=== PATIENT | male | born 1945 | race Caucasian/White ===

== ENCOUNTER 2016-09-01 09:57 | Outpatient (RCR) | payer MEDICARE, OTHER ==
[2016-09-01 10:06] LABS: PLATELET COUNT 205 10^3uL (150-450); WHITE BLOOD COUNT 5.91 10^3uL (4.0-11.0)
[2016-09-01 10:11] LABS: MEAN CORPUSCULAR HEMOGLOBIN 25.6 PG (26.0-34.0); MEAN CORPUSCULAR VOLUME 78 FL (80-100)
[2016-09-01 10:23] LABS: ANION GAP 16.6 MEQ/L (3-15); CALCULATED IONIZED CALCIUM 4.1 mg/dL (3.8-4.6); PHOSPHORUS 3.5 mg/dL (2.4-4.9); TOTAL PROTEIN 7.5 g/dL (6.4-8.5)
[2016-09-01 10:26] LABS: BAND NEUTROPHILS % 2 % (0-6); EOSINOPHILS % 8 % (0-4); LYMPHOCYTES # 1.1 #; MONOCYTES # 0.4 #; MONOCYTES % 7 % (3-11); RBC MORPH NORMAL (NORMAL); SEGMENTED NEUTROPHILS % 63 % (51-67); TOTAL CELLS COUNTED 100
[2016-09-15 10:10] LABS: BASOPHILS % (AUTO) 0 % (0-2); EOSINOPHILS # (AUTO) 0.2 10^3uL; EOSINOPHILS % (AUTO) 4 % (0-4); LYMPHOCYTES # (AUTO) 0.6 X10^3; MEAN CORPUSCULAR HGB CONC 32.9 g/dL (31.0-37.0); MEAN PLATELET VOLUME 9.9 FL (6.0-9.5); MONOCYTES # (AUTO) 0.1 X10^3; MONOCYTES % (AUTO) 1 % (3-11); NEUTROPHILS # (AUTO) 4.3 X10^3; NEUTROPHILS % (AUTO) 84 % (51-67); PLATELET COUNT 217 10^3uL (150-450); WHITE BLOOD COUNT 5.19 10^3uL (4.0-11.0)
[2016-09-15 10:20] LABS: MEAN CORPUSCULAR HEMOGLOBIN 25.1 PG (26.0-34.0); MEAN CORPUSCULAR VOLUME 77 FL (80-100)
[2016-09-22 10:30] LABS: MEAN CORPUSCULAR HGB CONC 33.1 g/dL (31.0-37.0); PLATELET COUNT 143 10^3uL (150-450); WHITE BLOOD COUNT 4.02 10^3uL (4.0-11.0)
[2016-09-22 10:32] LABS: MEAN CORPUSCULAR HEMOGLOBIN 25.2 PG (26.0-34.0); MEAN CORPUSCULAR VOLUME 76 FL (80-100)
[2016-09-22 10:49] LABS: BAND NEUTROPHILS % 0 % (0-6); EOSINOPHILS % 0 % (0-4); LYMPHOCYTES # 0.8 #; MONOCYTES # 0.1 #; MONOCYTES % 3 % (3-11); SEGMENTED NEUTROPHILS % 76 % (51-67); TOTAL CELLS COUNTED 100
[2016-09-22 10:50] LABS: ANISOCYTOSIS SLIGHT; MICROCYTOSIS SLIGHT; RBC MORPH SEE REFERENCE (NORMAL)
[2016-09-22 11:21] LABS: ALBUMIN 3.6 g/dL (3.4-5.0); ANION GAP 14.4 MEQ/L (3-15); CALCULATED IONIZED CALCIUM 4.1 mg/dL (3.8-4.6); PHOSPHORUS 3.5 mg/dL (2.4-4.9); TOTAL PROTEIN 7.1 g/dL (6.4-8.5)
[2016-09-29 11:04] LABS: MEAN PLATELET VOLUME 9.8 FL (6.0-9.5); PLATELET COUNT 233 10^3uL (150-450); WHITE BLOOD COUNT 3.64 10^3uL (4.0-11.0)
[2016-09-29 11:06] LABS: MEAN CORPUSCULAR HEMOGLOBIN 24.6 PG (26.0-34.0); MEAN CORPUSCULAR HGB CONC 31.7 g/dL (31.0-37.0); MEAN CORPUSCULAR VOLUME 78 FL (80-100)
[2016-09-29 11:08] LABS: BAND NEUTROPHILS % 0 % (0-6); EOSINOPHILS % 5 % (0-4); MONOCYTES # 0.1 #; MONOCYTES % 2 % (3-11); RBC MORPH SEE REFERENCE (NORMAL); SEGMENTED NEUTROPHILS % 66 % (51-67); TOTAL CELLS COUNTED 100
[2016-09-29 11:09] LABS: ANISOCYTOSIS SLIGHT; HYPOCHROMASIA SLIGHT; POIKILOCYTOSIS SLIGHT
[2016-10-06 09:15] LABS: MEAN CORPUSCULAR HGB CONC 32.4 g/dL (31.0-37.0); MEAN PLATELET VOLUME 9.6 FL (6.0-9.5); PLATELET COUNT 343 10^3uL (150-450); WHITE BLOOD COUNT 3.45 10^3uL (4.0-11.0)
[2016-10-06 10:27] LABS: MEAN CORPUSCULAR HEMOGLOBIN 24.6 PG (26.0-34.0); MEAN CORPUSCULAR VOLUME 76 FL (80-100); SEGMENTED NEUTROPHILS % 75 % (51-67)
[2016-10-06 10:28] LABS: ANISOCYTOSIS SLIGHT; BAND NEUTROPHILS % 2 % (0-6); EOSINOPHILS % 6 % (0-4); LYMPHOCYTES # 0.5 #; MICROCYTOSIS SLIGHT; MONOCYTES # 0.1 #; MONOCYTES % 2 % (3-11); RBC MORPH SEE REFERENCE (NORMAL); TOTAL CELLS COUNTED 100
[2016-10-06 13:02] LABS: IRON 24 ug/dL (65-175); UNBOUND IRON CONTENT 317 ug/dl (126-382)
[2016-10-13 10:41] LABS: MEAN PLATELET VOLUME 9.8 FL (6.0-9.5); PLATELET COUNT 172 10^3uL (150-450)
[2016-10-13 10:42] LABS: MEAN CORPUSCULAR HEMOGLOBIN 23.9 PG (26.0-34.0); MEAN CORPUSCULAR HGB CONC 31.7 g/dL (31.0-37.0); MEAN CORPUSCULAR VOLUME 76 FL (80-100)
[2016-10-13 10:58] LABS: BAND NEUTROPHILS % 1 % (0-6); EOSINOPHILS % 3 % (0-4); HYPOCHROMASIA SLIGHT; LYMPHOCYTES # 0.7 #; MONOCYTES # 0.5 #; MONOCYTES % 12 % (3-11); POIKILOCYTOSIS SLIGHT; RBC MORPH SEE REFERENCE (NORMAL); SEGMENTED NEUTROPHILS % 69 % (51-67); TOTAL CELLS COUNTED 100
[2016-10-13 10:59] LABS: ANISOCYTOSIS SLIGHT
[2016-10-20 10:58] LABS: MEAN PLATELET VOLUME 9.5 FL (6.0-9.5); PLATELET COUNT 165 10^3uL (150-450); WHITE BLOOD COUNT 2.93 10^3uL (4.0-11.0)
[2016-10-20 11:19] LABS: MEAN CORPUSCULAR HEMOGLOBIN 23.7 PG (26.0-34.0); MEAN CORPUSCULAR HGB CONC 31.2 g/dL (31.0-37.0); MEAN CORPUSCULAR VOLUME 76 FL (80-100)
[2016-10-20 13:19] LABS: BAND NEUTROPHILS % 0 % (0-6); EOSINOPHILS % 0 % (0-4); LYMPHOCYTES # 0.8 #; MONOCYTES # 0.3 #; MONOCYTES % 16 % (3-11); SEGMENTED NEUTROPHILS % 56 % (51-67); TOTAL CELLS COUNTED 100
[2016-10-20 13:20] LABS: ANISOCYTOSIS SLIGHT; HYPOCHROMASIA SLIGHT; POLYCHROMASIA SLIGHT; RBC MORPH SEE REFERENCE (NORMAL)
[2016-10-27 10:51] LABS: MEAN CORPUSCULAR VOLUME 80 FL (80-100); MEAN PLATELET VOLUME 9.8 FL (6.0-9.5); PLATELET COUNT 260 10^3uL (150-450); WHITE BLOOD COUNT 7.68 10^3uL (4.0-11.0)
[2016-10-27 10:58] LABS: ANISOCYTOSIS MODERATE; BAND NEUTROPHILS % 0 % (0-6); EOSINOPHILS % 0 % (0-4); HYPOCHROMASIA SLIGHT; LYMPHOCYTES # 0.6 #; MEAN CORPUSCULAR HEMOGLOBIN 25.3 PG (26.0-34.0); MEAN CORPUSCULAR HGB CONC 31.5 g/dL (31.0-37.0); MONOCYTES # 0.6 #; MONOCYTES % 8 % (3-11); RBC MORPH SEE REFERENCE (NORMAL); SEGMENTED NEUTROPHILS % 84 % (51-67); TOTAL CELLS COUNTED 100
[2016-11-03 08:36] LABS: MEAN CORPUSCULAR HGB CONC 32.7 g/dL (31.0-37.0); MEAN CORPUSCULAR VOLUME 80 FL (80-100); MEAN PLATELET VOLUME 9.8 FL (6.0-9.5); PLATELET COUNT 235 10^3uL (150-450); WHITE BLOOD COUNT 2.83 10^3uL (4.0-11.0)
[2016-11-03 09:06] LABS: MEAN CORPUSCULAR HEMOGLOBIN 26.3 PG (26.0-34.0)
[2016-11-03 09:07] LABS: BAND NEUTROPHILS % 1 % (0-6); EOSINOPHILS % 2 % (0-4); LYMPHOCYTES # 0.8 #; MONOCYTES # 0.2 #; MONOCYTES % 11 % (3-11); RBC MORPH SEE REFERENCE (NORMAL); SEGMENTED NEUTROPHILS % 58 % (51-67); TOTAL CELLS COUNTED 100
[2016-11-03 09:08] LABS: ANISOCYTOSIS MARKED; HYPOCHROMASIA SLIGHT
[2016-11-03 09:24] LABS: ALBUMIN 4.4 g/dL (3.4-5.0); ANION GAP 15.8 MEQ/L (3-15); MAGNESIUM* 2.3 mg/dL (1.6-2.3); PHOSPHORUS 1.8 mg/dL (2.4-4.9); TOTAL PROTEIN 7.2 g/dL (6.4-8.5)
[2016-11-11 14:19] LABS: MEAN CORPUSCULAR HGB CONC 31.9 g/dL (31.0-37.0); MEAN CORPUSCULAR VOLUME 83 FL (80-100); MEAN PLATELET VOLUME 9.3 FL (6.0-9.5); PLATELET COUNT 104 10^3uL (150-450); WHITE BLOOD COUNT 5.08 10^3uL (4.0-11.0)
[2016-11-11 14:22] LABS: MEAN CORPUSCULAR HEMOGLOBIN 26.4 PG (26.0-34.0)
[2016-11-11 14:23] LABS: ANISOCYTOSIS SLIGHT; BAND NEUTROPHILS % 0 % (0-6); EOSINOPHILS % 1 % (0-4); HYPOCHROMASIA SLIGHT; LYMPHOCYTES # 0.7 #; MONOCYTES # 0.2 #; MONOCYTES % 4 % (3-11); RBC MORPH SEE REFERENCE (NORMAL); SEGMENTED NEUTROPHILS % 82 % (51-67); TOTAL CELLS COUNTED 100
[2016-11-18 10:43] LABS: MEAN CORPUSCULAR VOLUME 83 FL (80-100); MEAN PLATELET VOLUME 9.6 FL (6.0-9.5); PLATELET COUNT 265 10^3uL (150-450); WHITE BLOOD COUNT 5.98 10^3uL (4.0-11.0)
[2016-11-18 11:13] LABS: MEAN CORPUSCULAR HEMOGLOBIN 26.7 PG (26.0-34.0)
[2016-11-18 11:24] LABS: BAND NEUTROPHILS % 2 % (0-6); EOSINOPHILS % 5 % (0-4); LYMPHOCYTES # 0.5 #; MONOCYTES % 19 % (3-11); SEGMENTED NEUTROPHILS % 66 % (51-67); TOTAL CELLS COUNTED 100
[2016-11-18 11:25] LABS: ANISOCYTOSIS SLIGHT; HYPOCHROMASIA SLIGHT; POIKILOCYTOSIS SLIGHT; RBC MORPH SEE REFERENCE (NORMAL)
[2016-11-24 11:23] LABS: MEAN CORPUSCULAR HGB CONC 32.7 g/dL (31.0-37.0); MEAN CORPUSCULAR VOLUME 82 FL (80-100); MEAN PLATELET VOLUME 9.6 FL (6.0-9.5); PLATELET COUNT 220 10^3uL (150-450); WHITE BLOOD COUNT 3.37 10^3uL (4.0-11.0)
[2016-11-24 11:25] LABS: MEAN CORPUSCULAR HEMOGLOBIN 26.9 PG (26.0-34.0)
[2016-11-24 11:26] LABS: ANISOCYTOSIS MODERATE; BAND NEUTROPHILS % 1 % (0-6); EOSINOPHILS % 1 % (0-4); LYMPHOCYTES # 0.4 #; MONOCYTES # 0.2 #; MONOCYTES % 7 % (3-11); POIKILOCYTOSIS SLIGHT; RBC MORPH SEE REFERENCE (NORMAL); SEGMENTED NEUTROPHILS % 79 % (51-67); TEAR DROP CELLS SLIGHT; TOTAL CELLS COUNTED 100
[2016-11-24 11:50] LABS: ALBUMIN 3.8 g/dL (3.4-5.0); ANION GAP 13.7 MEQ/L (3-15); CALCULATED IONIZED CALCIUM 4.4 mg/dL (3.8-4.6); MAGNESIUM* 1.9 mg/dL (1.6-2.3); PHOSPHORUS 3.2 mg/dL (2.4-4.9); TOTAL PROTEIN 6.4 g/dL (6.4-8.5)
== END 2016-11-30 | disposition home or self-care (01) ==
LOC: LAB 09:57
PROVIDERS: ATTEND Internal Medicine Hematology & Oncology
DX: D70.9 Neutropenia, unspecified (principal); C34.11 Malignant neoplasm of upper lobe, right bronchus or lung; C79.31 Secondary malignant neoplasm of brain; C79.51 Secondary malignant neoplasm of bone; R53.83 Other fatigue
CPT/HCPCS: 36415; 80053; 82533; 82728; 83540; 83550; 83615; 83735; 84100; 84443; 85007; 85025; 85027

== ENCOUNTER 2016-12-01 10:51 | Outpatient (RCR) | payer MEDICARE, OTHER ==
[~2016-12-01 10:51] MED LIST: ACET-2264 PO; DOCU-34 PO; ERLO25TA PO; LORA10CA PO; METO10TA3 PO; NF-CLINGEL TOP; ONDA-51 PO; RIVA15TA2 PO; SCOP1PAT10 TD; SENN8.6T10 PO
[2016-12-01 11:08] LABS: MEAN CORPUSCULAR HEMOGLOBIN 27.3 PG (26.0-34.0); MEAN CORPUSCULAR HGB CONC 32.9 g/dL (31.0-37.0); MEAN CORPUSCULAR VOLUME 83 FL (80-100); MEAN PLATELET VOLUME 9.6 FL (6.0-9.5); PLATELET COUNT 96 10^3uL (150-450); WHITE BLOOD COUNT 4.16 10^3uL (4.0-11.0)
[2016-12-01 11:32] LABS: ANISOCYTOSIS MARKED; BAND NEUTROPHILS % 2 % (0-6); EOSINOPHILS % 3 % (0-4); LYMPHOCYTES # 0.5 #; MONOCYTES # 0.2 #; MONOCYTES % 5 % (3-11); RBC MORPH SEE REFERENCE (NORMAL); SEGMENTED NEUTROPHILS % 79 % (51-67); TOTAL CELLS COUNTED 100
[2016-12-08 10:53] LABS: MEAN CORPUSCULAR HEMOGLOBIN 27.7 PG (26.0-34.0); MEAN CORPUSCULAR VOLUME 84 FL (80-100); PLATELET COUNT 217 10^3uL (150-450); WHITE BLOOD COUNT 5.97 10^3uL (4.0-11.0)
[2016-12-08 11:22] LABS: ALBUMIN 3.9 g/dL (3.4-5.0); CALCULATED IONIZED CALCIUM 4.1 mg/dL (3.8-4.6); MAGNESIUM* 1.9 mg/dL (1.6-2.3)
[2016-12-08 12:01] LABS: BAND NEUTROPHILS % 2 % (0-6); SEGMENTED NEUTROPHILS % 70 % (51-67)
[2016-12-08 12:02] LABS: ANISOCYTOSIS MARKED; EOSINOPHILS % 2 % (0-4); LYMPHOCYTES # 0.8 #; MONOCYTES # 0.6 #; MONOCYTES % 11 % (3-11); RBC MORPH SEE REFERENCE (NORMAL); TOTAL CELLS COUNTED 100
[2016-12-15 09:37] LABS: BASOPHILS % (AUTO) 1 % (0-2); EOSINOPHILS # (AUTO) 0.1 10^3uL; EOSINOPHILS % (AUTO) 4 % (0-4); LYMPHOCYTES # (AUTO) 0.7 X10^3; MEAN CORPUSCULAR HEMOGLOBIN 28.2 PG (26.0-34.0); MEAN CORPUSCULAR HGB CONC 33.5 g/dL (31.0-37.0); MEAN CORPUSCULAR VOLUME 84 FL (80-100); MEAN PLATELET VOLUME 9.5 FL (6.0-9.5); MONOCYTES # (AUTO) 0.4 X10^3; MONOCYTES % (AUTO) 10 % (3-11); NEUTROPHILS # (AUTO) 2.2 X10^3; NEUTROPHILS % (AUTO) 63 % (51-67); PLATELET COUNT 259 10^3uL (150-450); WHITE BLOOD COUNT 3.45 10^3uL (4.0-11.0)
[2016-12-19] MEDS ORDERED: PRX20T PO (14:40)
[2016-12-19] MEDS ORDERED: OMEP20CA12 PO (14:40)
[2016-12-19] MEDS ORDERED: CALC-697 PO (14:41)
[2016-12-22 10:19] LABS: MEAN CORPUSCULAR HEMOGLOBIN 28.6 PG (26.0-34.0); MEAN CORPUSCULAR HGB CONC 34.4 g/dL (31.0-37.0); MEAN CORPUSCULAR VOLUME 83 FL (80-100); MEAN PLATELET VOLUME 9.1 FL (6.0-9.5); PLATELET COUNT 106 10^3uL (150-450); WHITE BLOOD COUNT 2.92 10^3uL (4.0-11.0)
[2016-12-22 10:25] LABS: ANISOCYTOSIS SLIGHT; BAND NEUTROPHILS % 0 % (0-6); EOSINOPHILS % 3 % (0-4); LYMPHOCYTES # 0.6 #; MONOCYTES # 0.2 #; MONOCYTES % 8 % (3-11); POIKILOCYTOSIS SLIGHT; RBC MORPH SEE REFERENCE (NORMAL); SEGMENTED NEUTROPHILS % 66 % (51-67); TOTAL CELLS COUNTED 100
[2016-12-29 10:56] LABS: BASOPHILS % (AUTO) 0 % (0-2); EOSINOPHILS # (AUTO) 0.2 10^3uL; EOSINOPHILS % (AUTO) 2 % (0-4); LYMPHOCYTES # (AUTO) 0.8 X10^3; MEAN CORPUSCULAR HEMOGLOBIN 28.5 PG (26.0-34.0); MEAN CORPUSCULAR HGB CONC 33.4 g/dL (31.0-37.0); MEAN CORPUSCULAR VOLUME 85 FL (80-100); MEAN PLATELET VOLUME 9.6 FL (6.0-9.5); MONOCYTES # (AUTO) 1.1 X10^3; MONOCYTES % (AUTO) 14 % (3-11); NEUTROPHILS # (AUTO) 5.4 X10^3; NEUTROPHILS % (AUTO) 72 % (51-67); PLATELET COUNT 256 10^3uL (150-450); WHITE BLOOD COUNT 7.53 10^3uL (4.0-11.0)
[2017-01-05 10:46] LABS: BASOPHILS % (AUTO) 0 % (0-2); EOSINOPHILS # (AUTO) 0.1 10^3uL; EOSINOPHILS % (AUTO) 2 % (0-4); LYMPHOCYTES # (AUTO) 0.6 X10^3; MEAN CORPUSCULAR HEMOGLOBIN 28.9 PG (26.0-34.0); MEAN CORPUSCULAR HGB CONC 33.7 g/dL (31.0-37.0); MEAN CORPUSCULAR VOLUME 86 FL (80-100); MEAN PLATELET VOLUME 9.3 FL (6.0-9.5); MONOCYTES # (AUTO) 0.4 X10^3; MONOCYTES % (AUTO) 13 % (3-11); NEUTROPHILS # (AUTO) 1.9 X10^3; NEUTROPHILS % (AUTO) 63 % (51-67); PLATELET COUNT 280 10^3uL (150-450); WHITE BLOOD COUNT 2.98 10^3uL (4.0-11.0)
[2017-01-12 13:47] LABS: MEAN CORPUSCULAR HEMOGLOBIN 28.9 PG (26.0-34.0); MEAN CORPUSCULAR HGB CONC 33.9 g/dL (31.0-37.0); MEAN CORPUSCULAR VOLUME 85 FL (80-100); MEAN PLATELET VOLUME 9.4 FL (6.0-9.5); PLATELET COUNT 120 10^3uL (150-450); WHITE BLOOD COUNT 4.54 10^3uL (4.0-11.0)
[2017-01-12 14:01] LABS: ALBUMIN 4.1 g/dL (3.4-5.0); ANION GAP 14.2 MEQ/L (3-15); CALCULATED IONIZED CALCIUM 4.2 mg/dL (3.8-4.6); MAGNESIUM* 1.8 mg/dL (1.6-2.3); TOTAL PROTEIN 7.3 g/dL (6.4-8.5)
[2017-01-12 14:04] LABS: BAND NEUTROPHILS % 2 % (0-6); EOSINOPHILS % 2 % (0-4); LYMPHOCYTES # 0.6 #; MONOCYTES # 0.2 #; MONOCYTES % 4 % (3-11); RBC MORPH SEE REFERENCE (NORMAL); SEGMENTED NEUTROPHILS % 79 % (51-67); TOTAL CELLS COUNTED 100
[2017-01-12 14:05] LABS: ANISOCYTOSIS SLIGHT; POLYCHROMASIA SLIGHT
[2017-01-19 10:44] LABS: BASOPHILS % (AUTO) 0 % (0-2); EOSINOPHILS # (AUTO) 0.1 10^3uL; EOSINOPHILS % (AUTO) 1 % (0-4); LYMPHOCYTES # (AUTO) 0.7 X10^3; MEAN CORPUSCULAR HEMOGLOBIN 29.2 PG (26.0-34.0); MEAN CORPUSCULAR HGB CONC 33.8 g/dL (31.0-37.0); MEAN CORPUSCULAR VOLUME 86 FL (80-100); MEAN PLATELET VOLUME 9.8 FL (6.0-9.5); MONOCYTES # (AUTO) 1.7 X10^3; MONOCYTES % (AUTO) 10 % (3-11); NEUTROPHILS # (AUTO) 14.6 X10^3; NEUTROPHILS % (AUTO) 85 % (51-67); PLATELET COUNT 251 10^3uL (150-450); WHITE BLOOD COUNT 17.17 10^3uL (4.0-11.0)
[2017-01-26 11:42] LABS: MEAN CORPUSCULAR HEMOGLOBIN 28.3 PG (26.0-34.0); MEAN CORPUSCULAR HGB CONC 33.2 g/dL (31.0-37.0); MEAN CORPUSCULAR VOLUME 85 FL (80-100); MEAN PLATELET VOLUME 10.3 FL (6.0-9.5); PLATELET COUNT 317 10^3uL (150-450); WHITE BLOOD COUNT 11.51 10^3uL (4.0-11.0)
[2017-01-26 12:04] LABS: BAND NEUTROPHILS % 5 % (0-6); EOSINOPHILS % 4 % (0-4); LYMPHOCYTES # 1.4 #; MONOCYTES # 1.7 #; MONOCYTES % 15 % (3-11); SEGMENTED NEUTROPHILS % 64 % (51-67); TOTAL CELLS COUNTED 100
[2017-01-26 12:05] LABS: RBC MORPH NORMAL (NORMAL)
[2017-02-02 10:43] LABS: MEAN CORPUSCULAR HEMOGLOBIN 28.1 PG (26.0-34.0); MEAN CORPUSCULAR VOLUME 88 FL (80-100); MEAN PLATELET VOLUME 10.3 FL (6.0-9.5); PLATELET COUNT 154 10^3uL (150-450); WHITE BLOOD COUNT 14.08 10^3uL (4.0-11.0)
[2017-02-02 10:56] LABS: BAND NEUTROPHILS % 7 % (0-6); EOSINOPHILS % 1 % (0-4); LYMPHOCYTES # 1.3 #; MONOCYTES # 1.1 #; MONOCYTES % 8 % (3-11); RBC MORPH NORMAL (NORMAL); SEGMENTED NEUTROPHILS % 75 % (51-67); TOTAL CELLS COUNTED 100
[2017-02-09 10:43] LABS: BASOPHILS % (AUTO) 0 % (0-2); EOSINOPHILS # (AUTO) 0.1 10^3uL; EOSINOPHILS % (AUTO) 1 % (0-4); MEAN CORPUSCULAR HEMOGLOBIN 27.8 PG (26.0-34.0); MEAN CORPUSCULAR VOLUME 89 FL (80-100); MEAN PLATELET VOLUME 9.9 FL (6.0-9.5); MONOCYTES # (AUTO) 0.7 X10^3; MONOCYTES % (AUTO) 9 % (3-11); NEUTROPHILS # (AUTO) 5.4 X10^3; NEUTROPHILS % (AUTO) 75 % (51-67); PLATELET COUNT 230 10^3uL (150-450); WHITE BLOOD COUNT 7.22 10^3uL (4.0-11.0)
[2017-02-09 10:49] LABS: MEAN CORPUSCULAR HGB CONC 31.2 g/dL (31.0-37.0)
[2017-02-16 12:47] LABS: MEAN CORPUSCULAR HEMOGLOBIN 28.1 PG (26.0-34.0); MEAN CORPUSCULAR HGB CONC 32.6 g/dL (31.0-37.0); MEAN CORPUSCULAR VOLUME 86 FL (80-100); MEAN PLATELET VOLUME 10.2 FL (6.0-9.5); PLATELET COUNT 230 10^3uL (150-450); WHITE BLOOD COUNT 7.39 10^3uL (4.0-11.0)
[2017-02-16 12:50] LABS: BAND NEUTROPHILS % 2 % (0-6); LYMPHOCYTES # 1.2 #; MONOCYTES # 0.4 #; MONOCYTES % 5 % (3-11); SEGMENTED NEUTROPHILS % 73 % (51-67)
[2017-02-16 12:51] LABS: EOSINOPHILS % 3 % (0-4); POIKILOCYTOSIS SLIGHT; RBC MORPH SEE REFERENCE (NORMAL); TOTAL CELLS COUNTED 100
[2017-02-16 12:52] LABS: ANISOCYTOSIS MODERATE
[2017-02-16 13:01] LABS: ALBUMIN 3.7 g/dL (3.4-5.0); ANION GAP 14.4 MEQ/L (3-15); CALCULATED IONIZED CALCIUM 4.1 mg/dL (3.8-4.6); MAGNESIUM* 1.7 mg/dL (1.6-2.3); TOTAL PROTEIN 6.8 g/dL (6.4-8.5)
[2017-02-23 10:33] LABS: BASOPHILS % (AUTO) 1 % (0-2); EOSINOPHILS % (AUTO) 1 % (0-4); MEAN CORPUSCULAR HEMOGLOBIN 27.4 PG (26.0-34.0); MEAN CORPUSCULAR VOLUME 89 FL (80-100); MEAN PLATELET VOLUME 10.1 FL (6.0-9.5); MONOCYTES # (AUTO) 0.5 X10^3; MONOCYTES % (AUTO) 7 % (3-11); NEUTROPHILS % (AUTO) 77 % (51-67); PLATELET COUNT 163 10^3uL (150-450); WHITE BLOOD COUNT 7.75 10^3uL (4.0-11.0)
[2017-02-23 10:39] LABS: MEAN CORPUSCULAR HGB CONC 30.7 g/dL (31.0-37.0)
== END 2017-03-01 | disposition home or self-care (01) ==
LOC: LAB 10:51
PROVIDERS: ATTEND Internal Medicine Hematology & Oncology
DX: C34.11 Malignant neoplasm of upper lobe, right bronchus or lung (principal); D70.9 Neutropenia, unspecified; C79.31 Secondary malignant neoplasm of brain; C79.51 Secondary malignant neoplasm of bone
CPT/HCPCS: 36415; 80053; 83615; 83735; 84100; 85007; 85025; 85027

== ENCOUNTER → 2016-12-08 | Outpatient (CLI) | payer MEDICARE, OTHER | LOC: RAD 14:13 | PROVIDERS: ATTEND Internal Medicine Hematology & Oncology | DX: C34.11 Malignant neoplasm of upper lobe, right bronchus or lung (principal); C79.31 Secondary malignant neoplasm of brain; C79.51 Secondary malignant neoplasm of bone; D70.9 Neutropenia, unspecified; J32.0 Chronic maxillary sinusitis | CPT/HCPCS: 70553; A9579 ==

== ENCOUNTER → 2016-12-19 | Outpatient (CLI) | payer MEDICARE, OTHER ==
[~2016-12-19] VITALS: Ht 200.7 cm; Wt 92.1 kg
--- NOTE | 2016-12-19 14:20 | NUR ---
BLADDER SCAN SHOWS >200ML POST VOID RESIDUAL
--- NOTE | 2016-12-19 14:28 | NUR ---
CALL TO NANETTE IN DR CABEZAS'S OFFICE TO REPORT POST VOID RESIDUAL OF >200ML PER BLADDER SCAN. SHE WILL REPORT TO THE DR AND LET US KNOW OF ANY FURTHER ORDERS.
[2016-12-19 14:29] VITALS: BP 112/74
--- NOTE | 2016-12-19 14:54 | NUR ---
Call from Chemo center, Pt can be sent home. Pt has an apt with Dr. Castillo on thursday.
--- NOTE | 2016-12-19 16:08 | NUR ---
HUTCHISON CATH INSERTED WITH 2150 ML OUT IN THE FIRST 10 MINUTES. PT VOICES RELIEF OF BLADDER PRESSURE. CATH CARE DISCUSSED WITH PT AND , LEG BAG ATTACHED AND TEACHING REGARDING SWITCHING FROM LEG BACK TO HUTCHISON BAG WAS COVERED. QUESTIONS ANSWERED, ENCOURAGED PT TO CALL DR WITH ANY FURTHER QUESTIONS.
== END ==
LOC: EUOP 14:05
PROVIDERS: ATTEND Internal Medicine Hematology & Oncology
DX: R30.0 Dysuria (principal); C34.11 Malignant neoplasm of upper lobe, right bronchus or lung
CPT/HCPCS: 51702; 51798

== ENCOUNTER → 2017-01-19 | Outpatient (REF) | payer MEDICARE, OTHER ==
[2017-01-19 12:17] LABS: BILIRUBIN,URINE Negative (Negative); CLARITY,URINE Cloudy; GLUCOSE, URINE (UA) Negative (Negative); LEUKOCYTE ESTERASE, URINE 1+ (Negative); UROBILINOGEN,URINE 0.2 mg/dL (0.2-1.0)
[2017-01-19 12:36] LABS: COLOR,URINE Dark Yellow; URINE CENTRIFUGED VOLUME 12 mL
[2017-01-19 12:38] LABS: RBC,URINE 50-100 /HPF
== END ==
LOC: LAB 11:49
PROVIDERS: ATTEND Internal Medicine Hematology & Oncology
DX: R33.9 Retention of urine, unspecified (principal)
CPT/HCPCS: 81003; 81015; 87077; 87088; 87186

== ENCOUNTER → 2017-02-17 | Outpatient (CLI) | payer MEDICARE, OTHER ==
[~2017-02-17] MED LIST changes: +CALC-697 PO; +OMEP20CA12 PO; +PRX20T PO
--- NOTE | 2017-02-17 13:18 | Diagnostic Imaging Report ---
PROCEDURE: MR imaging of the brain with and without contrast. TECHNIQUE: Multiplanar, multisequence MR imaging of the brain was performed with and without contrast. INDICATION: Lungs CA. Evaluation for metastatic disease. COMPARISON: Comparison with 12/08/2016. FINDINGS: Following IV gadolinium injection, there is a ring-enhancing lesion now present measuring 8 mm in the aguilar white matter junction in the high posterior parietal region on the right. There is also a 5 mm enhancing lesion now present within the shanthi left of midline in the midportion of the shanthi. No abnormal enhancement of the meninges. There is generalized cortical atrophy. Ventricles are not dilated. The FLAIR sequence again shows diffuse white matter change throughout both cerebral hemispheres in a periventricular distribution. There has been some progression of the white matter change since previous exam. This again is most likely secondary to secondary changes from chemotherapy. No restricted signal noted on the diffusion sequence to indicate ischemic process. Basal cisterns are clear. No extra-axial fluid collection. There is fluid within the mastoid air cells bilaterally. This was present previously and is unchanged. There is normal flow-void in the intracranial vessels. Normal enhancement of the vessels noted following IV gadolinium. The sagittal and transverse sinuses opacify in a normal fashion. IMPRESSION: 1. There is an 8mm enhancing mass now present in the aguilar white matter junction in the high mid posterior parietal region. 2. There is also a 5 mm enhancing lesion now present in the shanthi within the brainstem on the left. 3. Progressive white matter changes throughout the periventricular region noted bilaterally. Dictated by: Dictated on workstation # [id number]
== END ==
LOC: RAD 10:42
PROVIDERS: ATTEND Internal Medicine Hematology & Oncology
DX: D70.9 Neutropenia, unspecified (principal); C34.11 Malignant neoplasm of upper lobe, right bronchus or lung; C79.31 Secondary malignant neoplasm of brain; C79.51 Secondary malignant neoplasm of bone
CPT/HCPCS: 70553; A9579

== ENCOUNTER 2017-03-02 11:38 | Outpatient (RCR) | payer MEDICARE, OTHER ==
[2017-03-02 12:07] LABS: BASOPHILS % (AUTO) 0 % (0-2); EOSINOPHILS % (AUTO) 1 % (0-4); LYMPHOCYTES # (AUTO) 1.1 X10^3; MEAN CORPUSCULAR HEMOGLOBIN 27.8 PG (26.0-34.0); MEAN CORPUSCULAR VOLUME 89 FL (80-100); MONOCYTES # (AUTO) 0.8 X10^3; MONOCYTES % (AUTO) 14 % (3-11); NEUTROPHILS # (AUTO) 3.9 X10^3; NEUTROPHILS % (AUTO) 67 % (51-67); PLATELET COUNT 191 10^3uL (150-450); WHITE BLOOD COUNT 5.91 10^3uL (4.0-11.0)
[2017-03-02 12:11] LABS: MEAN CORPUSCULAR HGB CONC 31.3 g/dL (31.0-37.0)
[2017-03-02 17:56] LABS: IRON 33 ug/dL (65-175); UNBOUND IRON CONTENT 288 ug/dl (126-382)
[2017-03-09 10:39] LABS: MEAN CORPUSCULAR HEMOGLOBIN 27.8 PG (26.0-34.0); MEAN CORPUSCULAR VOLUME 88 FL (80-100); MEAN PLATELET VOLUME 10.4 FL (6.0-9.5); PLATELET COUNT 252 10^3uL (150-450); WHITE BLOOD COUNT 8.28 10^3uL (4.0-11.0)
[2017-03-09 10:47] LABS: MEAN CORPUSCULAR HGB CONC 31.7 g/dL (31.0-37.0)
[2017-03-09 10:59] LABS: BAND NEUTROPHILS % 9 % (0-6); EOSINOPHILS % 0 % (0-4); LYMPHOCYTES # 1.2 #; MONOCYTES # 0.7 #; MONOCYTES % 9 % (3-11); RBC MORPH NORMAL (NORMAL); SEGMENTED NEUTROPHILS % 67 % (51-67); TOTAL CELLS COUNTED 100
[2017-03-16 10:22] LABS: BASOPHILS % (AUTO) 0 % (0-2); EOSINOPHILS # (AUTO) 0.1 10^3uL; EOSINOPHILS % (AUTO) 1 % (0-4); MEAN CORPUSCULAR VOLUME 86 FL (80-100); MEAN PLATELET VOLUME 9.3 FL (6.0-9.5); MONOCYTES # (AUTO) 0.8 X10^3; MONOCYTES % (AUTO) 7 % (3-11); NEUTROPHILS # (AUTO) 9.8 X10^3; NEUTROPHILS % (AUTO) 82 % (51-67); PLATELET COUNT 227 10^3uL (150-450); WHITE BLOOD COUNT 11.96 10^3uL (4.0-11.0)
[2017-03-16 10:23] LABS: MEAN CORPUSCULAR HGB CONC 31.6 g/dL (31.0-37.0)
[2017-03-23 13:14] LABS: MEAN CORPUSCULAR HEMOGLOBIN 27.9 PG (26.0-34.0); MEAN CORPUSCULAR VOLUME 90 FL (80-100); MEAN PLATELET VOLUME 9.8 FL (6.0-9.5); PLATELET COUNT 280 10^3uL (150-450); WHITE BLOOD COUNT 25.29 10^3uL (4.0-11.0)
[2017-03-23 13:27] LABS: MEAN CORPUSCULAR HGB CONC 31.1 g/dL (31.0-37.0)
[2017-03-23 13:38] LABS: BAND NEUTROPHILS % 2 % (0-6); EOSINOPHILS % 0 % (0-4); LYMPHOCYTES # 0.8 #; MONOCYTES # 0.8 #; MONOCYTES % 3 % (3-11); NUCLEATED RED BLOOD CELLS 1; POLYCHROMASIA SLIGHT; RBC MORPH SEE REFERENCE (NORMAL); SEGMENTED NEUTROPHILS % 92 % (51-67); TOTAL CELLS COUNTED 100
[2017-03-30 11:05] LABS: MEAN CORPUSCULAR HEMOGLOBIN 29.2 PG (26.0-34.0); MEAN CORPUSCULAR VOLUME 94 FL (80-100); MEAN PLATELET VOLUME 9.6 FL (6.0-9.5); PLATELET COUNT 255 10^3uL (150-450); WHITE BLOOD COUNT 29.79 10^3uL (4.0-11.0)
[2017-03-30 11:23] LABS: ANISOCYTOSIS SLIGHT; BAND NEUTROPHILS % 0 % (0-6); EOSINOPHILS % 0 % (0-4); HYPOCHROMASIA SLIGHT; LYMPHOCYTES # 0.9 #; MONOCYTES # 2.6 #; MONOCYTES % 9 % (3-11); RBC MORPH SEE REFERENCE (NORMAL); SEGMENTED NEUTROPHILS % 88 % (51-67); TOTAL CELLS COUNTED 100
[2017-04-06 10:09] LABS: MEAN CORPUSCULAR HEMOGLOBIN 29.9 PG (26.0-34.0); MEAN CORPUSCULAR VOLUME 95 FL (80-100); MEAN PLATELET VOLUME 9.5 FL (6.0-9.5); PLATELET COUNT 175 10^3uL (150-450); WHITE BLOOD COUNT 12.02 10^3uL (4.0-11.0)
[2017-04-06 10:27] LABS: MEAN CORPUSCULAR HGB CONC 31.4 g/dL (31.0-37.0)
[2017-04-06 10:53] LABS: ANISOCYTOSIS MODERATE; BAND NEUTROPHILS % 2 % (0-6); EOSINOPHILS % 0 % (0-4); HYPOCHROMASIA SLIGHT; LYMPHOCYTES # 1.2 #; MONOCYTES # 0.5 #; MONOCYTES % 4 % (3-11); RBC MORPH SEE REFERENCE (NORMAL); SEGMENTED NEUTROPHILS % 84 % (51-67); TOTAL CELLS COUNTED 100
== END 2017-04-15 19:24 | disposition home or self-care (01) ==
LOC: LAB 11:38
PROVIDERS: ATTEND Internal Medicine Hematology & Oncology
DX: D70.9 Neutropenia, unspecified (principal); C34.11 Malignant neoplasm of upper lobe, right bronchus or lung; C79.31 Secondary malignant neoplasm of brain; C79.51 Secondary malignant neoplasm of bone
CPT/HCPCS: 36415; 82728; 83540; 83550; 85025

== ENCOUNTER → 2017-03-09 | Outpatient (CLI) | payer MEDICARE, OTHER ==
--- NOTE | 2017-03-09 17:51 | Diagnostic Imaging Report ---
EXAMINATION: Left shoulder dated 03/09/2017. INDICATION: Pain with limited range of motion. Fell on Thursday, history of lung cancer. COMPARISON: 07/26/2015. FINDINGS: Three views of the left shoulder: There is narrowing and spurring at the acromioclavicular joint. Subchondral cystic changes noted. Adjacent increased densities perhaps due to chondrocalcinosis. There are no acute fractures or dislocations. The visualized left lung demonstrates no gross acute abnormalities. IMPRESSION: Chronic change. No acute process. Dictated by: Dictated on workstation # [id number]
== END ==
LOC: RAD 14:52
PROVIDERS: ATTEND Internal Medicine Hematology & Oncology
DX: M25.512 Pain in left shoulder (principal); C34.11 Malignant neoplasm of upper lobe, right bronchus or lung
CPT/HCPCS: 73030